=== PATIENT | female | born 1935 | race Caucasian/White ===

== ENCOUNTER 2017-10-09 01:03 | Inpatient (IN) | payer MEDICARE ==
[~2017-10-09] VITALS: Ht 165.1 cm; Wt 69.4 kg
--- NOTE | 2017-10-09 01:05 | NUR ---
Patient brought in by rescue, c/o leg pains, reports some pressure in chest. Patient has +1 edema on bilat low ext.
--- NOTE | 2017-10-09 01:35 | NUR ---
Dr. Iglesias at bedside for MSE.
[2017-10-09 02:09] LABS: BASOPHILS # (AUTO) 0.1 K/uL (0.0-8.0); EOSINOPHILS # (AUTO) 0.1 K/uL (0.0-0.7); EOSINOPHILS % (AUTO) 0.8 % (0.0-7.0); HEMATOCRIT 29.5 % (31.2-41.9); LYMPHOCYTES # (AUTO) 1.3 K/uL (20.0-40.0); LYMPHOCYTES % (AUTO) 17.2 % (20.5-51.5); MEAN CORPUSCULAR HEMOGLOBIN 29.6 uug (24.7-32.8); MEAN CORPUSCULAR HGB CONC 34 g/dL (32.3-35.6); MEAN CORPUSCULAR VOLUME 87.4 fL (75.5-95.3); MONOCYTES # (AUTO) 0.4 K/uL (2.0-10.0); MONOCYTES % (AUTO) 5.3 % (0.0-11.0); NEUTROPHILS # (AUTO) 5.8 K/uL (1.8-8.9); NEUTROPHILS % (AUTO) 75.7 % (38.5-71.5); PLATELET COUNT (AUTO) 232 K/uL (179-408); RED BLOOD CELL COUNT(AUTO) 3.37 MIL/uL (3.63-4.92); WHITE BLOOD COUNT (AUTO) 7.6 K/uL (3.8-11.8)
[2017-10-09 02:17] LABS: CARBON DIOXIDE 24 mmol/L (21-32); CHLORIDE 100 mmol/L (98-107); CREATININE 1.2 mg/dL (0.6-1.3); GLUCOSE 103 mg/dL (74-106); POTASSIUM 4.2 mmol/L (3.5-5.1); UREA NITROGEN, BLOOD 35 mg/dL (7-18)
[2017-10-09 02:29] LABS: ALANINE AMINOTRANSFERASE 81 U/L (14-59); ALKALINE PHOSPHATASE 97 U/L (50-136); ASPARTATE AMINOTRANSFERASE 87 U/L (15-37); BILIRUBIN,DIRECT 0.2 mg/dL (0.0-0.2); BILIRUBIN,TOTAL 0.6 mg/dL (0.2-1.0); TOTAL PROTEIN, SERUM 6.2 g/dL (6.4-8.2)
--- NOTE | 2017-10-09 03:29 | NUR ---
Ultrasound at bedside
--- NOTE | 2017-10-09 03:43 | NUR ---
Dr. Iglesias on panel call with Dr. Ndiaye
[2017-10-09] MEDS ORDERED: HYDROCODONE/APAP 5-325MG TABLET PO PRN (04:00)
[2017-10-09] MEDS ORDERED: MORPHINE SULFATE 2 MG/1 ML DISP.SYRIN IV PRN (04:00)
[2017-10-09] MEDS ORDERED: hydrALAZINE HCL 20 MG/1 ML VIAL IV PRN (04:00)
[2017-10-09] MEDS ORDERED: ENOXAPARIN SODIUM 60 MG/0.6 ML DISP.SYRIN SQ SCH ×3 (04:00→21:00)
[2017-10-09] MEDS ORDERED: HYDROMORPHONE 1 MG/1 ML DISP.SYRIN IV PRN ×2 (04:00→08:30)
[2017-10-09] MEDS ORDERED: ACETAMINOPHEN 325 MG TABLET PO PRN (04:00)
[2017-10-09] MEDS ORDERED: MAGNESIUM HYDROXIDE 30 ML LIQUID UDC PO PRN (04:00)
[2017-10-09] MEDS ORDERED: Z GUARD REMEDY PASTE 57 GM TUBE TOP PRN (04:00)
[2017-10-09] MEDS ORDERED: ONDANSETRON 4 MG/2 ML VIAL IV PRN (04:00)
--- NOTE | 2017-10-09 04:16 | NUR ---
Passed report to Sumaya GOINS tele.
--- NOTE | 2017-10-09 04:50 | NUR ---
admitted new patient ,alert,oriented,in no respiratory distress,denies chest pain,mild discomfort when coughing,NSR rate 100 bpm on tele monitor,lab report second troponin trending down from 0.646 to 0.618,continue closely monitor.
[2017-10-09 05:37] VITALS: BP 157/97
--- NOTE | 2017-10-09 07:17 | NUR ---
gan and debit card kept in safe box.
[2017-10-09 07:40] LABS: *BILIRUBIN,URIN NEGATIVE (NEGATIVE); *BLOOD, URINE NEGATIVE (NEGATIVE); *CLARITY,URINE CLEAR (CLEAR); *COLOR,URINE YELLOW (YELLOW); *KETONES,URINE NEGATIVE (NEGATIVE); *PROTEIN,URINE TRACE (NEGATIVE); *UROBILINOGEN,URINE 0.2 E.U./dl (NORMAL); LEUKOCYTE ESTERASE ,URINE 3+ (NEGATIVE); NITRITE, URINE NEGATIVE (NEGATIVE); PH,URINE 5.5 (5.0-8.0); UGLUCOSE NEGATIVE (NEGATIVE)
--- NOTE | 2017-10-09 08:00 | NUR ---
AWAKE ALERT AND ORIENT X3 NO CHEST PAIN OR SOB SR ON MONITOR. CONTINUE WITH TELE OBSERVATION
[2017-10-09 08:02] LABS: BACTERIA,URINE FEW /HPF (NONE SEEN); RBC,URINE 0-3 /HPF (0-3); SQUAMOUS EPITHELIAL CELL,UR FEW /HPF (NONE SEEN)
[2017-10-09] MEDS ORDERED: MORPHINE SULFATE 4 MG/1 ML DISP.SYRIN IV PRN ×2 (08:30)
[2017-10-09] MEDS: ASPIRIN 81 MG TAB.CHEW PO SCH (08:35)
[2017-10-09] MEDS: FUROSEMIDE 40 MG/4 ML VIAL IV SCH ×2 (11:29→20:35)
[2017-10-09] MEDS: CARVEDILOL 6.25 MG TABLET PO SCH ×2 (11:30→18:28)
[2017-10-09 11:47] VITALS: BP 138/78
--- NOTE | 2017-10-09 12:00 | NUR ---
SEEN BY HOSPITALIST/ROUGHER HELPER SEE NOTES. PT IS UP AND ABOUT 2DCHO COMPLETED WITH 35% EF. DR MONTEIRO AWARE
[2017-10-09 15:30] VITALS: BP 97/54
[2017-10-09 16:02] VITALS: BP 97/54
--- NOTE | 2017-10-09 17:56 | NUR ---
DENIES PAIN OR SOB REMAINS SR ON MONITOR. CLOSELY MONITORED
--- NOTE | 2017-10-09 19:15 | NUR ---
RECEIVED PT IN BED. AAOX4. DENIES ANY PAIN OR SOB. O2 SAT AT 935 ON RA. IN NO ACUTE DISTRESS. IV SITE ON LEFT WRIST INTACT AND PATENT. SR ON TELE AT 95/MIN. SAFETY MEASURE INITIATED AND CALL [facility]ELLIN WITHIN REACHED.
[2017-10-09 20:00] VITALS: BP 123/70
[2017-10-09] MEDS: ATORVASTATIN 10 MG TABLET PO SCH (20:35)
[2017-10-09] MEDS ORDERED: CEPHALEXIN MONOHYDRATE 250 MG CAPSULE ONE (23:12)
[2017-10-09] MEDS: CEPHALEXIN MONOHYDRATE 250 MG CAPSULE PO SCH (23:26)
[2017-10-10] VITALS: BP 115/58
[2017-10-10 04:00] VITALS: BP 130/67
--- NOTE | 2017-10-10 06:18 | NUR ---
AAOX4. DENIES ANY PAIN OR SOB. O2 SAT AT 95% ON RA. IN NO ACUTE DISTRESS. IV SITE ON LEFT WRIST INTACT AND PATENT. SR ON TELE AT 88/MIN. NO ADVERSE REACTION NOTED FROM ABX. SAFETY MEASURE MAINTAINED AND CALL MEDELLIN WITHIN REACHED.
[2017-10-10] MEDS ORDERED: CEPHALEXIN MONOHYDRATE 250 MG CAPSULE ONE (06:26)
[2017-10-10 06:34] LABS: BASOPHILS % (AUTO) 0.8 % (0.0-2.0); EOSINOPHILS # (AUTO) 0.1 K/uL (0.0-0.7); EOSINOPHILS % (AUTO) 1.2 % (0.0-7.0); HEMATOCRIT 32.4 % (31.2-41.9); HEMOGLOBIN 10.8 g/dL (10.9-14.3); LYMPHOCYTES # (AUTO) 1.6 K/uL (20.0-40.0); LYMPHOCYTES % (AUTO) 30.4 % (20.5-51.5); MEAN CORPUSCULAR HEMOGLOBIN 28.8 uug (24.7-32.8); MEAN CORPUSCULAR HGB CONC 33 g/dL (32.3-35.6); MEAN CORPUSCULAR VOLUME 86.7 fL (75.5-95.3); MONOCYTES # (AUTO) 0.4 K/uL (2.0-10.0); MONOCYTES % (AUTO) 7.1 % (0.0-11.0); NEUTROPHILS # (AUTO) 3.3 K/uL (1.8-8.9); NEUTROPHILS % (AUTO) 60.5 % (38.5-71.5); PLATELET COUNT (AUTO) 239 K/uL (179-408); RED BLOOD CELL COUNT(AUTO) 3.74 MIL/uL (3.63-4.92); WHITE BLOOD COUNT (AUTO) 5.4 K/uL (3.8-11.8)
[2017-10-10] MEDS: CEPHALEXIN MONOHYDRATE 250 MG CAPSULE PO SCH ×3 (06:36→21:05)
[2017-10-10 06:54] LABS: CARBON DIOXIDE 26 mmol/L (21-32); CHLORIDE 101 mmol/L (98-107); CHOLESTEROL 169 mg/dL (<200); CREATININE 1.5 mg/dL (0.6-1.3); GLUCOSE 90 mg/dL (74-106); HDL CHOLESTEROL 64 mg/dL (40-60); MAGNESIUM 1.9 mg/dL (1.8-2.4); PHOSPHOROUS 4.7 mg/dL (2.5-4.9); POTASSIUM 3.6 mmol/L (3.5-5.1); TRIGLYCERIDES 90 MG/DL (30-150); UREA NITROGEN, BLOOD 32 mg/dL (7-18)
[2017-10-10 07:12] LABS: IRON, SERUM 31 ug/dL (50-175)
--- NOTE | 2017-10-10 07:30 | NUR ---
Rec'd pt in bed, awake. A&Ox4. Watching TV. In no appearent distress noted. Admitted for Elevated troponin. Denies chest pain at this time. SR on Tele. Left wrist heplock in place. Call light within reach. Will continue to monitor.
[2017-10-10] MEDS: CARVEDILOL 6.25 MG TABLET PO SCH ×2 (08:51→18:45)
[2017-10-10] MEDS: ASPIRIN 81 MG TAB.CHEW PO SCH (08:51)
[2017-10-10] MEDS: FUROSEMIDE 40 MG/4 ML VIAL IV SCH (08:51)
[2017-10-10] MEDS ORDERED: ENOXAPARIN SODIUM 40 MG/0.4 ML DISP.SYRIN SQ SCH (09:00)
[2017-10-10 11:47] VITALS: BP 104/59
[2017-10-10 15:32] VITALS: BP 120/64
--- NOTE | 2017-10-10 19:15 | NUR ---
Pt remained stable during shift. Frieda IV Lasix, noted with good urine output during shift. BRP. BLE swelling improving. No complain of pain during shift.
[2017-10-10 20:00] VITALS: BP 140/70
[2017-10-10] MEDS: ATORVASTATIN 10 MG TABLET PO SCH (21:05)
[2017-10-11] VITALS (7 sets, daily range): BP systolic 108–152; BP diastolic 59–84
[2017-10-11] MEDS: CEPHALEXIN MONOHYDRATE 250 MG CAPSULE PO SCH ×3 (05:42→21:01)
--- NOTE | 2017-10-11 07:49 | NUR ---
Rec'd pt in bed awake. A&Ox4. Per pt, she did not sleep well last night and is requesting for sleeping pill. However per shift report pt was noted sleeping during rounds. Pt denies pain at this time. BLE noted with trace edema, non-pitting. Per pt, she is voiding well. BRP. Discussed plan of care and goal for the day. Will continue to monitor.
[2017-10-11] MEDS: CARVEDILOL 6.25 MG TABLET PO SCH ×2 (08:06→17:11)
[2017-10-11] MEDS: ASPIRIN 81 MG TAB.CHEW PO SCH (08:06)
[2017-10-11] MEDS: ENOXAPARIN SODIUM 30 MG/0.3 ML DISP.SYRIN SUBCUT SCH (08:06)
--- NOTE | 2017-10-11 16:04 | NUR ---
Pt requesting for sleeping pill to help her sleep at night. Relayed to Dr. Kimbrough with new order for Ambien 5mg PO QHS PRN. Noted and carried out. Pt made aware.
[2017-10-11 16:08] LABS: CARBON DIOXIDE 29 mmol/L (21-32); CHLORIDE 98 mmol/L (98-107); CREATININE 1.6 mg/dL (0.6-1.3); GLUCOSE 107 mg/dL (74-106); POTASSIUM 4.2 mmol/L (3.5-5.1); UREA NITROGEN, BLOOD 36 mg/dL (7-18)
--- NOTE | 2017-10-11 16:31 | NUR ---
Pt seen and examined by Dr. Lugo. Per , encourage PO water, no more Lasix. Labs ordered for today and in am, possible to start Lisinopril tomorrow if kidneys are doing ok based on labs. Per , he will also place order for cardiac U/S. No new verbal orders at this time. Will continue to monitor pt.
--- NOTE | 2017-10-11 19:02 | NUR ---
Pt remained stable during shift. BLE swelling improved. Denies SOB at this time. Denies chest pain. Receiving Keflex PO for UTI. No adverse side effects noted. Denies dysuria or burning sensation when voiding. Noted with clear yellow urine output. BRP. Ambulating ad tunde with FWW. All needs met. Pt in bed watching TV. Will endorse to noc nurse.
[2017-10-11] MEDS: ATORVASTATIN 10 MG TABLET PO SCH (20:59)
[2017-10-11] MEDS: ZOLPIDEM 5 MG TABLET PO PRN (21:00)
--- NOTE | 2017-10-11 21:00 | NUR ---
ambien 5 mg po admin for insomnia per patient requested.
--- NOTE | 2017-10-11 22:00 | NUR ---
patient slept well,NSR on tele,no sob noted,v/s stable.
[2017-10-12 00:36] VITALS: BP 120/65
[2017-10-12 04:00] VITALS: BP 140/70
[2017-10-12 06:39] LABS: CARBON DIOXIDE 27 mmol/L (21-32); CHLORIDE 97 mmol/L (98-107); CREATININE 1.7 mg/dL (0.6-1.3); GLUCOSE 101 mg/dL (74-106); POTASSIUM 4.5 mmol/L (3.5-5.1); UREA NITROGEN, BLOOD 37 mg/dL (7-18)
[2017-10-12] MEDS: CEPHALEXIN MONOHYDRATE 250 MG CAPSULE PO SCH ×3 (06:39→21:33)
[2017-10-12] MEDS: ASPIRIN 81 MG TAB.CHEW PO SCH (08:06)
[2017-10-12] MEDS: CARVEDILOL 6.25 MG TABLET PO SCH ×2 (08:06→17:33)
[2017-10-12] MEDS: ENOXAPARIN SODIUM 30 MG/0.3 ML DISP.SYRIN SUBCUT SCH (09:00)
[2017-10-12 11:03] VITALS: BP 130/70
[2017-10-12] MEDS ORDERED: CARV6.252 PO (13:48)
[2017-10-12] MEDS ORDERED: ASPI81TA31 PO (13:48)
[2017-10-12] MEDS ORDERED: CEPH250C PO (13:48)
[2017-10-12] MEDS ORDERED: ATOR10TA PO (13:48)
[2017-10-12 15:47] VITALS: BP 125/68
--- NOTE | 2017-10-12 16:01 | NUR ---
Discharge instructions given, reviewed list of medications with patient. Able to verbalized understanding. Instructed patient to follow up with PCP in one week, able to verbalize understanding. Skin is intact, no skin breakdown noted. Valuables returned to patient. Awaiting for transportation to home
[2017-10-12] MEDS: FUROSEMIDE 20 MG TABLET PO SCH (17:04)
--- NOTE | 2017-10-12 18:00 | NUR ---
Patient discharged earlier today. Patient stated at 1800 unable to leave, ride not available. Taxi voucher offered, patient states unknown address and unable to leave tonight. Transportation available in AM and will leave early. Marvin Kimbrough NP notified. Nursing [employer] Repairer Marciano notified.
[2017-10-12 20:18] VITALS: BP 132/77
[2017-10-12] MEDS: ZOLPIDEM 5 MG TABLET PO PRN (20:54)
[2017-10-12] MEDS: ATORVASTATIN 10 MG TABLET PO SCH (20:54)
--- NOTE | 2017-10-12 23:03 | NUR ---
RECEIVED PT AWAKE, ALERT, ORIENTEDX4. PT SHOWS NO SIGNS OF DISTRESS. PT NO IV SITE. ENDORSED BY DAYSHIFT NURSE THAT PT TO BE DISCHARGE TODAY BUT DIDN'T PUSH THRU BECAUSE NO ONE IS GOING TO PICK HER UP IN THE HOSPITAL. AWARE OF THE SITUATION. CALL LIGHT WITHIN REACH, BED ALARM ON, IN LOW POSITION AND SIDE RAILS UP. WILL CONTINUE TO MONITOR.
[2017-10-13 04:00] VITALS: BP 125/72
[2017-10-13] MEDS: CEPHALEXIN MONOHYDRATE 250 MG CAPSULE PO SCH ×2 (06:15→13:48)
--- NOTE | 2017-10-13 06:28 | NUR ---
PT SLEPT THROUGHOUT THE SHIFT. PT SHOWS NO SIGNS OF DISTRESS. PRESCRIBED MEDICATION GIVEN AND PT TOLERATED IT WELL. SAFETY AND COMFORT PROVIDED. WILL ENDORSE TO DAYSHIFT NURSE.
[2017-10-13 08:15] VITALS: BP 148/70
[2017-10-13] MEDS: ASPIRIN 81 MG TAB.CHEW PO SCH (08:18)
[2017-10-13] MEDS: FUROSEMIDE 20 MG TABLET PO SCH (08:18)
[2017-10-13] MEDS: CARVEDILOL 6.25 MG TABLET PO SCH (08:18)
[2017-10-13] MEDS: ENOXAPARIN SODIUM 30 MG/0.3 ML DISP.SYRIN SUBCUT SCH (08:24)
[2017-10-13] MEDS ORDERED: FURO20TA4 PO ×2 (10:17→16:14)
--- NOTE | 2017-10-13 15:30 | NUR ---
Report given to BUSTER Piper at [facility]. at 1650 - Ambulance came and picked up patient, report given to Ambulance EMT. Transferred to [facility] via ambulance in stable condition.
[2017-10-13 15:34] VITALS: BP 114/61
[2017-10-13] MEDS ORDERED: FUROSEMIDE 20 MG TABLET PO SCH (17:00)
== END 2017-10-13 16:50 | DRG 280 ==
LOC: ER 01:09 → TELE 04:00 → MED 10-12 13:50
PROVIDERS: ADMIT Internal Medicine; ATTEND Nurse Practitioner Acute Care
DX: I21.4 Non-ST elevation (NSTEMI) myocardial infarction (principal); I50.43 Acute on chronic combined systolic (congestive) and diastolic (congestive) heart failure; N17.9 Acute kidney failure, unspecified; I42.9 Cardiomyopathy, unspecified; N39.0 Urinary tract infection, site not specified; D63.8 Anemia in other chronic diseases classified elsewhere; I11.0 Hypertensive heart disease with heart failure; Z59.0 Homelessness; F17.210 Nicotine dependence, cigarettes, uncomplicated; T50.2X5A Adverse effect of carbonic-anhydrase inhibitors, benzothiadiazides and other diuretics, initial encounter; Y92.230 Patient room in hospital as the place of occurrence of the external cause; R60.0 Localized edema; Z91.19 Patient's noncompliance with other medical treatment and regimen
CPT/HCPCS: 36415; 70030-TC; 71045; 82746; 83550; 83605; 83735; 84100; 84443; 85025; 85730; 87040; 87086; 93005; 93307; A4663; J1650; J1940